=== PATIENT | female | born 1995 | race Caucasian/White ===

== ENCOUNTER 2021-11-28 16:27 | Emergency (ER) | payer OTHER, SELFPAY ==
[2021-11-28 16:45] VITALS: BP 120/73; PULSE 86; RESP 18; TEMP 36.7; O2SAT 100; BMI 21.2
[2021-11-28 17:27] LABS: COVID19 -Nasal RAPID POSITIVE (Negative)
--- NOTE | 2021-11-28 19:46 | ED.RECABL ---
HPI - Recheck/Abnormal Lab/Rx General Chief Complaint: Recheck/Abnormal Lab/Rx Stated Complaint: not feeling well, bedridden for days Time Seen by Provider: 11/28/21 19:46 Source: patient Mode of arrival: Ambulatory History of Present Illness HPI narrative: 26-year-old female nonsmoker with noncontributory medical history presents with a chief complaint of various upper respiratory symptoms including body aches, runny nose, nasal congestion and sore throat as well as dry and hacking cough. She is had poor appetite and little energy for the past few days. She is nauseated but denies any vomiting. She denies any diarrhea or constipation. She is had no dysuria, frequency or urgency. She states that she was vaccinated against COVID and took a home test that was negative. Related Data Home Medications Medication Instructions Recorded Confirmed No Known Home Medications 11/28/21 11/28/21 Allergies Allergy/AdvReac Type Severity Reaction Status Date / Time Penicillins Allergy Unknown Verified 11/28/21 16:50 Review of Systems Review of Systems Narrative: GENERAL: See HPI HEENT: See HPI RESPIRATORY: See HPI CARDIOVASCULAR: Denies chest pain, palpitations, orthopnea, edema, GASTROINTESTINAL: See HPI : Denies dysuria, frequency, incontinence, hematuria, urinary retention. MUSCULOSKELETAL: denies weakness, joint pain, or bony pain SKIN: Denies rash, skin lesions, or other NEUROLOGIC: Denies weakness, headache, numbness, change in speech, confusion, seizures, incoordination. PSYCHIATRIC: No concerning psychosocial issues. 12 point review of systems is negative except for those stated above Patient History Social History Smoking Status: Never smoker Smoking Status: Never smoker alcohol intake frequency: 0-2 drinks per day Substance Use Type: does not use Exam Narrative Exam Narrative: GENERAL: [26] year old patient appears stated age. Well-developed patient, in mild distress. HEAD: Atraumatic. Normocephalic. EYES: Pupils equal round and reactive. Extraocular motions intact. No scleral icterus. No injection or drainage. ENT: Nose without bleeding, purulent drainage. Throat without erythema, tonsillar hypertrophy or exudate. Airway patent. NECK: Trachea midline. Non tender CARDIOVASCULAR: Regular rate and rhythm without murmurs, gallops, or rubs. RESPIRATORY: Clear to auscultation. Breath sounds equal bilaterally. No wheezes, rales, or rhonchi. GASTROINTESTINAL: Abdomen soft, non-tender, nondistended. EXTREMITIES: No edema or joint tenderness. BACK: Nontender without deformity or crepitance. No flank tenderness. NEURO: AOx3. SKIN: No rash or erythema of visible areas Initial Vital Signs Initial Vital Signs: Vital Signs Temperature 98.1 F 11/28/21 16:45 Pulse Rate 86 11/28/21 16:45 Respiratory Rate 18 11/28/21 16:45 Blood Pressure 120/73 11/28/21 16:45 Pulse Oximetry 100 11/28/21 16:45 Oxygen Delivery Method 11/28/21 16:45 Course Orders Ordered: ED Orders 11/28/21 19:51 Test Urine Stat Vital Signs Vital signs: Vital Signs - 8 hr 11/28/21 20:42 Pulse Rate 75 Respiratory Rate 18 Blood Pressure 125/72 Pulse Oximetry 98 Oxygen Delivery Method Room Air MDM - Recheck/Abnormal Lab/Rx Lab Data Labs: Lab Results 11/28/21 11/28/21 Range/Units 16:57 19:51 Urine Test Negative (Negative) SARS-CoV-2 (PCR) Positive H (Negative) Urine Dip Bedside Urine Glucose Negative Bedside Urine Bilirubin - Negative Bedside Urine Ketone - Negative Urine Specific [place] 1.010 Bedside Urine Occult Blood - Negative Bedside Urine pH 6.0 Bedside Urine Protein - Negative Bedside Urine Urobilinogen - Negative Bedside Urine Nitrite - Negative Bedside Urine Leukocytes - Negative Esterase Discharge Plan Departure Patient Disposition: Home Clinical Impression: COVID-19 Instructions: DI for COVID-19 (Suspected or Confirmed ) Activity Restrictions/Additional Instructions: *You have been diagnosed with [ COVID-19] *What to do: ?* per recommendations from the CDC and the [facility] Department of Health ?* stay home except to get medical care. ?Restrict activities outside your home, except for getting medical care. ?Do not go to work, school, or public areas. ?Avoid using public transportation, ride sharing, or taxis. ?* separate yourself from other people in your home. ?* call ahead before visiting your doctor ?* Wear a facemask ?* Cover your coughs and sneezes ?* Clean your hands often ?* Avoid sharing household items ?* Clean all high-touch services every day ?* Monitor your symptoms and seek prompt medical attention if your illness is worsening, particularly with difficulty in breathing. You may discontinue your isolation when: ?1. You have been fever-free for at least 24 hours without the use of fever reducing medication, AND ?2. Your symptoms are getting better, AND ?3. At least 5 days have passed since symptoms first appeared ?4. If you have fever, continue to stay home until fever resolves Individuals with laboratory confirmed COVID-19 who have not had any symptoms may discontinue home isolation when at least 5 days have passed since the date of their first COVID-19 diagnostic test and have had no subsequent illness You should notifiy any friends and family that have been in close contact *If up to date on COVID Vaccines, then they do not need to quarantine unless symptoms develop. Get tested on day 5 (or sooner if symptoms develop). Take precautions and watch for symptoms until day 10 *If NOT up to date on COVID Vaccines, then CDC recommends quarantine for at least 5 full days. Wear a well fitted mask at home if you must be around others. If they ?develop symptoms they should get tested. If they remain asymptomatic they should get tested on day 5. They should take precautions and monitor for symptoms until day 10. Prescriptions: No Action No Known Home Medications Stand Alone Forms: Work Release Note Visit Report Forms: Patient Portal/API
[2021-11-28 20:22] LABS: Pregnancy Test Urine Negative (Negative)
[2021-11-28 20:42] VITALS: BP 125/72; PULSE 75; RESP 18; O2SAT 98
== END 2021-11-28 20:42 | disposition home or self-care (01) ==
PROVIDERS: Emergency Medicine; Emergency Provider Emergency Medicine
DX: U07.1 COVID-19 (principal)
CPT/HCPCS: 81003; 81025; 87635; 99282; C9803

== ENCOUNTER 2022-11-26 15:38 | Emergency (ER) | payer OTHER, SELFPAY ==
[2022-11-26 15:53] VITALS: BP 118/64; PULSE 79; RESP 16; TEMP 36.9; O2SAT 100; BMI 21.2
--- NOTE | 2022-11-26 15:57 | DI.RAD.S_ITS ---
PROCEDURE: XR FINGER LT MIN 2V INDICATIONS: injury TECHNIQUE: AP hand, 2 views of the 1st finger(s) acquired. COMPARISON: None. FINDINGS: Bones: No fractures or dislocations. No suspicious bony lesions. Soft tissues: No suspicious soft tissue calcifications. IMPRESSION: Unremarkable left thumb radiographs Approved by: Alfonso Kulkarni M.D. on 11/26/2022 at 15:33
--- NOTE | 2022-11-26 18:35 | ED.UPPEXIN ---
HPI - Extremity Injury (Upper) <La Lane PA-C - Last Filed: 11/26/22 18:37> General Chief Complaint: Extremity Injury, Upper Stated Complaint: Thumb inj Time Seen by Provider: 11/26/22 17:29 Source: patient Mode of arrival: Ambulatory History of Present Illness HPI narrative: 27-year-old female with no reported past medical history presents to the ED status post a left thumb injury sustained just prior to arrival. Patient states that she was trying to type a boat when her finger got stuck between the rope and the dock. Patient denies numbness, tingling, weakness. Patient endorses pain in the thumb. Patient has full range of motion. Related Data Home Medications Medication Instructions Recorded Confirmed No Known Home Medications 11/28/21 11/28/21 Allergies Allergy/AdvReac Type Severity Reaction Status Date / Time Penicillins Allergy Unknown Verified 11/28/21 16:50 Review of Systems <La Lane PA-C - Last Filed: 11/26/22 18:37> Review of Systems ROS Unobtainable: All systems reviewed & are unremarkable except as noted in HPI and below Constitutional Constitutional: Denies chills, Denies fatigue, Denies fever(s), Denies frequent falls, Denies lethargy and Denies weakness Eyes Eyes: Denies change in vision, Denies eye discharge, Denies irritation and Denies loss of vision ENT Ears, Nose, Mouth, and Throat: Denies change in voice, Denies dizziness, Denies neck pain, Denies sore throat and Denies throat swelling Cardiovascular Cardiovascular: Denies chest pain, Denies irregular heart rhythm, Denies lightheadedness, Denies palpitations, Denies dyspnea, Denies dyspnea on exertion and Denies orthopnea Respiratory Respiratory: Denies cough, Denies dyspnea, Denies dyspnea on exertion and Denies wheezing Gastrointestinal Gastrointestinal: Denies abdominal pain, Denies change in bowel habits, Denies diarrhea, Denies nausea and Denies vomiting Genitourinary Genitourinary: Denies hematuria, Denies flank pain, Denies urinary incontinence and Denies urinary urgency Musculoskeletal Musculoskeletal: Denies back pain, Denies muscle weakness, Denies neck pain, Denies numbness and Denies tingling Comments: Left thumb pain Integumentary/Breasts Skin/Breast: Denies pruritus, Denies erythema, Denies rash and Denies wounds Neurologic Neurologic: Denies behavioral changes, Denies confusion, Denies dizziness, Denies frequent falls, Denies loss of vision, Denies numbness, Denies tingling and Denies weakness Psychiatric Psychiatric: Denies anxiety, Denies behavioral changes, Denies confusion, Denies depression, Denies homicidal ideation and Denies suicidal ideation Endocrine Endocrine: Denies fatigue, Denies flushing and Denies palpitations Hematologic/Lymphatic Hematologic/Lymphatic: Denies easy bruising Allergic/Immunologic Allergic/Immunologic: Denies urticaria, Denies throat swelling and Denies wheezing Patient History <La Lane PA-C - Last Filed: 11/26/22 18:37> Social History Smoking Status: Never smoker Smoking Status: Never smoker alcohol intake frequency: 0-2 drinks per day Substance Use Type: does not use Exam <La Lane PA-C - Last Filed: 11/26/22 18:37> Narrative Exam Narrative: Const General:?cooperative, healthy appearing and comfortable [facility] Head:?normal to inspection Ears:?hearing grossly normal bilaterally Nose:?external nose normal Face and sinus:?normal facial exam and sinuses nontender Mouth:?oral mucosae normal Throat:?posterior oropharynx normal Eyes General:?appearance normal, both eyes and all related structures Neck Neck:?normal visual inspection and no lymphadenopathy noted Resp Effort & Inspection:?normal respiratory effort Auscultation:?clear to auscultation bilaterally Cardio Rate:?regular rate Rhythm:?regular rhythm Musculoskeletal Left thumb tender to palpation. There is full range of motion, however range of motion is limited by pain. No scaphoid tenderness. Strength and sensation are intact. Patient is neurovascularly intact. Neuro General:?patient alert, patient awake and patient oriented x3 Initial Vital Signs Initial Vital Signs: Vital Signs Temperature 98.5 F 11/26/22 15:53 Pulse Rate 79 11/26/22 15:53 Respiratory Rate 16 11/26/22 15:53 Blood Pressure 118/64 11/26/22 15:53 Pulse Oximetry 100 11/26/22 15:53 Oxygen Delivery Method Room Air 11/26/22 15:53 <Henrietta Lovett DO - Last Filed: 11/28/22 22:22> Initial Vital Signs Initial Vital Signs: Vital Signs Temperature 98.5 F 11/26/22 15:53 Pulse Rate 79 11/26/22 15:53 Respiratory Rate 16 11/26/22 15:53 Blood Pressure 118/64 11/26/22 15:53 Pulse Oximetry 100 11/26/22 15:53 Oxygen Delivery Method Room Air 11/26/22 15:[address] <La Lane PA-C - Last Filed: 11/26/22 18:37> Orders Ordered: ED Orders 11/26/22 15:57 XR finger LT min 2V Stat Vital Signs Vital signs: Vital Signs - 8 hr 11/26/22 15:53 Temperature 98.5 F Pulse Rate 79 Respiratory Rate 16 Blood Pressure 118/64 Pulse Oximetry 100 Oxygen Delivery Method Room Air <Henrietta Lovett DO - Last Filed: 11/28/22 22:22> Orders Ordered: ED Orders 11/26/22 15:57 XR finger LT min 2V Stat Vital Signs Vital signs: Vital Signs - 8 hr 11/26/22 15:53 Temperature 98.5 F Pulse Rate 79 Respiratory Rate 16 Blood Pressure 118/64 Pulse Oximetry 100 Oxygen Delivery Method Room Air MDM - Extremity Injury (Upper) <La Lane PA-C - Last Filed: 11/26/22 18:37> MDM Narrative Medical decision making narrative: 27-year-old female with no reported past medical history presents to the ED status post a left thumb injury sustained just prior to arrival. Concern for fracture/dislocation versus musculoskeletal sprain/strain. Obtained x-rays which did not show any acute findings. Patient's symptoms are likely due to musculoskeletal sprain/strain. Advise supportive care with Tylenol, ibuprofen, heat packs, ice packs. Recommend follow-up with PCP. ED return precautions discussed with patient. Patient verbalized understanding. Medical records reviewed: Yes Discharge Plan Departure Patient Disposition: Home Clinical Impression: Left thumb sprain Instructions: DI for Finger Sprain Activity Restrictions/Additional Instructions: You were evaluated in the ED today for a left thumb injury. The x-ray did not show any fracture or dislocation. Your symptoms are likely due to a musculoskeletal sprain/strain. You may take Tylenol, I ibuprofen for the pain. You may apply ice packs for the 1st 24 hours, following which apply heat packs. Please follow-up with your PCP as soon as possible. Please return to the ED if you have worsening symptoms, numbness, tingling, weakness. Prescriptions: No Action No Known Home Medications Stand Alone Forms: Patient Portal/API <Henrietta Lovett DO - Last Filed: 11/28/22 22:22> Cosign ED Attending Cosrichardature Attestation: I was immediately available in the department for consultation. Documentation has been reviewed.
== END 2022-11-26 18:37 | disposition home or self-care (01) ==
PROVIDERS: Emergency Provider Student in an Organized Health Care Education/Training Program
DX: S63.602A Unspecified sprain of left thumb, initial encounter (principal); X58.XXXA Exposure to other specified factors, initial encounter
CPT/HCPCS: 73140; 99283

== ENCOUNTER 2022-12-28 20:49 | Emergency (ER) | payer OTHER, SELFPAY ==
[2022-12-28 20:53] VITALS: BP 120/62; PULSE 80; RESP 16; TEMP 36.8; O2SAT 100; BMI 20.7
--- NOTE | 2022-12-28 21:01 | DI.US.S_ITS ---
PROCEDURE: US PELVIC COMPLETE INDICATIONS: INCREASED RIGHT ADNEXAL PAIN TECHNIQUE: Real-time scanning was performed of the pelvic organs, with image documentation. Additional endovaginal scanning was necessary due to incomplete visualization of the adnexal and endometrial structures by transabdominal scanning. COMPARISON: None. FINDINGS: Uterus: Uterus is anteverted and normal in size at 3.1 x 4.5 x 7.1 cm. The myometrium is homogeneous. The endometrium measures 7.3 mm combined thickness. Ovaries: The right ovary measures 3.9 x 1.9 x 4.1 cm, with a calculated ovarian volume of 15.8 cc. The left ovary measures 2.9 x 1.8 x 3.8 cm, with a calculated ovarian volume of 10.0 cc. The ovaries have a normal sonographic appearance. Less than 12 follicles can be seen in each ovary. No adnexal masses are seen. There is no evidence of ovarian torsion Other: No pathologic free abdominal or pelvic fluid. A normal or abnormal appendix was not seen. IMPRESSION: No adnexal or uterine abnormality found, no sign of ovarian torsion. A normal or abnormal appendix could not be located. Dictated by: Eric Fall M.D. on 12/28/2022 at 22:10 Approved by: Eric Fall M.D. on 12/28/2022 at 22:12
--- NOTE | 2022-12-28 21:27 | ED.GENADULT ---
HPI - General Adult General Chief complaint: Abdominal Pain Stated complaint: R ovarian pain Time Seen by Provider: 12/28/22 20:50 Source: patient Mode of arrival: Ambulatory History of Present Illness HPI narrative: Patient is a 27-year-old female. Not on control. Never been . Here for evaluation of right-sided adnexal pain. She also states that it knight when she urinates. She was seen at an outside facility somewhere between 7 and 14 days ago for this same pain. Had an ultrasound. Was told that she had a right-sided ovarian cyst. She does not know the size of the cyst. Since that time she states that her symptoms had doubled somewhat however today at around noon her symptoms acutely got worse. She was just outside sitting when this happened. Has been persistent since then. She is having some vaginal discharge. Does have the dysuria. No change in bowel habits. Some nausea but no vomiting. No fevers. Related Data Home Medications Medication Instructions Recorded Confirmed No Known Home Medications 11/28/21 11/28/21 Allergies Allergy/AdvReac Type Severity Reaction Status Date / Time Penicillins Allergy Unknown Verified 12/28/22 20:53 Review of Systems Constitutional Constitutional: Reports system reviewed and no additional complaints, except as documented Gastrointestinal Gastrointestinal: Reports system reviewed and no additional complaints, except as documented Genitourinary Genitourinary: Reports system reviewed and no additional complaints, except as documented Musculoskeletal Musculoskeletal: Reports system reviewed and no additional complaints, except as documented Integumentary/Breasts Skin/Breast: Reports system reviewed and no additional complaints, except as documented Patient History Social History Smoking Status: Never smoker Smoking Status: Never smoker alcohol intake frequency: 0-2 drinks per day Substance Use Type: does not use Exam Initial Vital Signs Initial Vital Signs: Vital Signs Temperature 98.2 F 12/28/22 20:53 Pulse Rate 80 12/28/22 20:53 Respiratory Rate 16 12/28/22 20:53 Blood Pressure 120/62 12/28/22 20:53 Pulse Oximetry 100 12/28/22 20:53 Oxygen Delivery Method Room Air 12/28/22 20:53 Const General: cooperative, comfortable and No ill appearing HENMT Head: normal to inspection and normocephalic Resp Effort & Inspection: normal respiratory effort Cardio Rate: regular rate GI Inspection: normal to inspection and non-distended Palpation: soft, No firm, No guarding and tender (Right adnexa) Back/Spine/Pelvis Back: No CVA tenderness Neuro General: patient alert, patient awake and moves all extremities Extrem General: normal to inspection and capillary refill normal Course Orders Ordered: ED Orders 12/28/22 21:01 US pelvic complete Stat Vital Signs Vital signs: Vital Signs - 8 hr 12/28/22 20:53 Temperature 98.2 F Pulse Rate 80 Respiratory Rate 16 Blood Pressure 120/62 Pulse Oximetry 100 Oxygen Delivery Method Room Air Medical Decision Making Lab Data Lab results reviewed: Yes I reviewed the patient's lab results. Labs: Point of Care Testing Test Results Negative Urine Dip Bedside Urine Glucose Negative Bedside Urine Bilirubin - Negative Bedside Urine Ketone - Negative Urine Specific [place] 1.03 Bedside Urine Occult Blood - Negative Bedside Urine pH 6.0 Bedside Urine Protein - Negative Bedside Urine Urobilinogen - Negative Bedside Urine Nitrite - Negative Bedside Urine Leukocytes - Negative Esterase Point of care testing: Point of Care Testing Test Results Negative Urine Dip Bedside Urine Glucose Negative Bedside Urine Bilirubin - Negative Bedside Urine Ketone - Negative Urine Specific [place] 1.03 Bedside Urine Occult Blood - Negative Bedside Urine pH 6.0 Bedside Urine Protein - Negative Bedside Urine Urobilinogen - Negative Bedside Urine Nitrite - Negative Bedside Urine Leukocytes - Negative Esterase Imaging Data US - [employer]ER: Radiologist's Impression: PROCEDURE:? US PELVIC COMPLETE ? INDICATIONS:? INCREASED RIGHT ADNEXAL PAIN ? TECHNIQUE:? Real-time scanning was performed of the pelvic organs, with image documentation.? Additional endovaginal scanning was necessary due to incomplete visualization of the adnexal and endometrial structures by transabdominal scanning.? ? COMPARISON:? None. ? FINDINGS:? ?? Uterus:? Uterus is anteverted and normal in size at 3.1 x 4.5 x 7.1 cm. The myometrium is homogeneous. ? The endometrium measures 7.3 mm combined thickness. ? Ovaries:? The right ovary measures 3.9 x 1.9 x 4.1 cm, with a calculated ovarian volume of 15.8 cc. The left ovary measures 2.9 x 1.8 x 3.8 cm, with a calculated ovarian volume of 10.0 cc. The ovaries have a normal sonographic appearance. Less than 12 follicles can be seen in each ovary.? No adnexal masses are seen.? There is no evidence of ovarian torsion ? Other:? No pathologic free abdominal or pelvic fluid.? A normal or abnormal appendix was not seen. ? ? IMPRESSION:? No adnexal or uterine abnormality found, no sign of ovarian torsion.? A normal or abnormal appendix could not be located.? MDM Narrative Medical decision making narrative: test negative. Urinalysis negative. Ultrasound today does not show any right-sided ovarian cyst or torsion. I was unable to obtain the records from her ultrasound a couple weeks ago however since there is no cyst today I suspect that she is ruptured the cyst. Also considered appendicitis but I feel this is less likely given the location of her discomfort and how she presents. test was negative. Will discharge patient home with return precautions. She expressed understanding and agreement. Discharge Plan Departure Patient Disposition: Home Clinical Impression: Pelvic pain Instructions: DI for Pelvic Pain Activity Restrictions/Additional Instructions: You can take Tylenol/ibuprofen for any discomfort. I recommend you contact your primary doctor for follow-up to discuss the indications for a referral to see supervisor grading. Return to the emergency department for new symptoms. Prescriptions: No Action No Known Home Medications Stand Alone Forms: Patient Portal/API
[2022-12-28 22:47] VITALS: BP 116/64; PULSE 70; RESP 16; TEMP 36.3; O2SAT 99
== END 2022-12-28 22:48 | disposition home or self-care (01) ==
PROVIDERS: Emergency Provider Emergency Medicine
DX: R10.2 Pelvic and perineal pain (principal)
CPT/HCPCS: 76830; 76856; 81003; 81025; 93975; 99282

== ENCOUNTER 2023-01-23 13:15 | Emergency (ER) | payer OTHER, SELFPAY ==
[2023-01-23] VITALS (27 sets, daily range): BP systolic 108–135; BP diastolic 61–85; PULSE 54–83; RESP 10–36; TEMP 36.6; O2SAT 98–100; BMI 20.3
--- NOTE | 2023-01-23 13:34 | DI.RAD.S_ITS ---
PROCEDURE: XR ELBOW RT MIN 3V INDICATIONS: thinks dislocated again TECHNIQUE: 3 views of the elbow were acquired. COMPARISON: None. FINDINGS: Bones: There is posterior medial subluxation/dislocation of the proximal ulnar at the humeral ulnar joint. There is a fracture fragment , most likely arising from the coronoid process of the proximal ulna. Soft tissues: No elbow joint effusion. No suspicious soft tissue calcifications. IMPRESSION: 1. Fracture dislocation of elbow. Dictated by: Nikkie Pinzon M.D. on 01/23/2023 at 14:34 Approved by: Nikkie Pinzon M.D. on 01/23/2023 at 14:38
--- NOTE | 2023-01-23 13:58 | PC.NURSE ---
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 last time this happened, they wanted to do elbow surgery but opted not to because of the ehler's-danlos.
--- NOTE | 2023-01-23 15:00 | ED.GENADULT ---
HPI - General Adult General Chief complaint: Extremity Injury, Upper Stated complaint: dislocated elbow Time Seen by Provider: 01/23/23 14:19 Source: patient Mode of arrival: Ambulatory Limitations: no limitations History of Present Illness HPI narrative: Patient is a 27-year-old female here for evaluation of what she states is a dislocated right elbow. She states she has dislocated her right elbow in the past. Today she was at the gym. She was doing an exercise when she states that she felt like her elbow dislocated and she slipped forward landing on her right side. No other injuries from the event. Has difficulty with moving her elbow. Denies any right wrist or right shoulder discomfort. Related Data Home Medications Medication Instructions Recorded Confirmed No Known Home Medications 11/28/21 11/28/21 Allergies Allergy/AdvReac Type Severity Reaction Status Date / Time Penicillins Allergy Unknown Verified 12/28/22 20:53 Review of Systems Constitutional Constitutional: Reports system reviewed and no additional complaints, except as documented Musculoskeletal Musculoskeletal: Reports system reviewed and no additional complaints, except as documented Integumentary/Breasts Skin/Breast: Reports system reviewed and no additional complaints, except as documented Neurologic Neurologic: Reports system reviewed and no additional complaints, except as documented Patient History Social History Smoking Status: Never smoker Smoking Status: Never smoker alcohol intake frequency: 0-2 drinks per day Substance Use Type: does not use Exam Initial Vital Signs Initial Vital Signs: Vital Signs Temperature 97.8 F 01/23/23 13:30 Pulse Rate 72 01/23/23 13:30 Respiratory Rate 18 01/23/23 13:30 Blood Pressure 122/81 01/23/23 13:30 Pulse Oximetry 100 01/23/23 13:30 Oxygen Delivery Method Room Air 01/23/23 13:30 HENMT Head: normal to inspection and normocephalic Cardio Pulses: radial pulses present on the left Skin General: no rashes or lesions noted Neuro Sensory Exam: no sensory deficits noted Extrem Other: Right shoulder and right wrist are unremarkable. Patient has discomfort with palpation and movement of the right elbow. Procedures Orthopedic Joint Reduction Joint #1: Time Out Performed: Yes Side: right Joint Reduction Location: elbow Analgesia: procedural sedation Technique used: traction/counter-traction Post-reduction neuro exam: no change Post-reduction vascular: no change Post Reduction X-Ray Obtained: Yes Post Reduction X-Ray Results: reduced Splint Applied: Yes Patient Tolerated Procedure: Well Orthopedic Splinting/Casting Injury #1: Side: right Upper Extremity Injury Location: elbow Upper Extremity Immobilizer: posterior splint Other Orthopedic Equipment: other (Sling) Post splinting neuro exam: no change Post splinting vascular exam: no change Placed by: Provider Procedural Sedation Consent signed: Yes Time out performed: Yes Indication: fracture/dislocation reduction ASA Class: I Mallampati Airway Classification: Class I Preparation: hospital monitor applied, pulse oximeter, capnometry used, supplemental O2 applied, suction/airway equipment at bedside and IV secured IV Propofol dose (mg): 100 Intraservice time/total sedation time (min): 15 ED Sedation Level: Moderate (Concious) Patient Tolerated Procedure: Well Complications: none Course Orders Ordered: ED Orders 01/23/23 13:34 XR elbow RT min 3V Stat 01/23/23 15:41 XR elbow RT 2V Stat 01/23/23 17:06 XR elbow RT 2V Stat Discontinued Medications Hydromorphone HCl (Hydromorphone 1 Mg Inj) 1 mg IM NOW ONE Stop: 01/23/23 15:01 Last Admin: 01/23/23 15:07 Dose: 1 mg Documented By: SPIKE Propofol (Propofol 200 Mg/20 Ml Vial) 100 mg IV NOW ONE Stop: 01/23/23 15:50 Last Admin: 01/23/23 16:30 Dose: 100 mg Documented By: SPIKE Vital Signs Vital signs: Vital Signs - 8 hr 01/23/23 13:30 01/23/23 13:53 01/23/23 16:00 Temperature 97.8 F Pulse Rate 72 Pulse Rate [Right Radial] 72 Respiratory Rate 18 Blood Pressure 122/81 124/75 Pulse Oximetry 100 Oxygen Delivery Method Room Air 01/23/23 16:00 01/23/23 16:01 01/23/23 16:01 Temperature Pulse Rate 70 71 Pulse Rate [Right Radial] Respiratory Rate Blood Pressure 129/71 Pulse Oximetry 100 100 Oxygen Delivery Method 01/23/23 16:02 01/23/23 16:50 01/23/23 16:02 Temperature Pulse Rate 79 72 Pulse Rate [Right Radial] Respiratory Rate 16 12 Blood Pressure 135/73 Pulse Oximetry 100 Oxygen Delivery Method 01/23/23 16:05 01/23/23 16:05 01/23/23 16:10 Temperature Pulse Rate 67 Pulse Rate [Right Radial] Respiratory Rate 10 L Blood Pressure 132/75 123/67 Pulse Oximetry 100 Oxygen Delivery Method 01/23/23 16:10 01/23/23 16:15 01/23/23 16:15 Temperature Pulse Rate 66 64 Pulse Rate [Right Radial] Respiratory Rate 13 24 Blood Pressure 126/71 Pulse Oximetry 100 100 Oxygen Delivery Method 01/23/23 16:20 01/23/23 16:20 01/23/23 16:25 Temperature Pulse Rate 62 Pulse Rate [Right Radial] Respiratory Rate 21 Blood Pressure 120/73 118/71 Pulse Oximetry 100 Oxygen Delivery Method 01/23/23 16:25 01/23/23 16:30 01/23/23 16:30 Temperature Pulse Rate 63 80 Pulse Rate [Right Radial] Respiratory Rate 15 24 Blood Pressure 121/71 Pulse Oximetry 99 99 Oxygen Delivery Method 01/23/23 16:35 01/23/23 16:40 01/23/23 16:45 Temperature Pulse Rate 83 75 72 Pulse Rate [Right Radial] Respiratory Rate 17 18 25 H Blood Pressure 108/61 115/62 Pulse Oximetry 100 99 100 Oxygen Delivery Method 01/23/23 16:48 01/23/23 16:48 01/23/23 16:50 Temperature Pulse Rate 65 Pulse Rate [Right Radial] Respiratory Rate Blood Pressure 128/85 119/67 Pulse Oximetry 100 Oxygen Delivery Method 01/23/23 16:50 01/23/23 16:55 01/23/23 16:55 Temperature Pulse Rate 57 L 56 L Pulse Rate [Right Radial] Respiratory Rate 30 H 36 H Blood Pressure 109/71 Pulse Oximetry 100 100 Oxygen Delivery Method Medical Decision Making Imaging Data Extremity x-ray #1: Radiologist's Impression: PROCEDURE:? XR ELBOW RT MIN 3V ? INDICATIONS:? thinks dislocated again ? TECHNIQUE:? 3 views of the elbow were acquired.? ? COMPARISON:? None. ? FINDINGS:? ? Bones:? There is posterior medial subluxation/dislocation of the proximal ulnar at the humeral ulnar joint.? There is a fracture fragment , most likely arising from the coronoid process of the proximal ulna.? ? Soft tissues:? No elbow joint effusion.? No suspicious soft tissue calcifications.? ? ? IMPRESSION:? ? 1. Fracture dislocation of elbow.? Extremity x-ray #2: Radiologist's Impression: PROCEDURE:? XR ELBOW RT 2V ? INDICATIONS:? post reduction ? TECHNIQUE:? 2 views of the elbow were acquired.? ? COMPARISON:? [facility], CR, XR ELBOW RT MIN 3V, 01/23/2023, 13:44.? [facility], CR, XR ELBOW RT 2V, 01/23/2023, 15:45. ? FINDINGS: Overlying casting material obscures fine bony detail.? Reduction of prior elbow dislocation.? Possible acute mildly displaced ulna coronoid process fracture.? Elbow joint effusion is present. ? ? IMPRESSION:? Reduction of prior elbow dislocation.? Possible acute mildly displaced ulna coronoid process fracture.? Follow-up radiographs and/or cross-sectional imaging could be obtained as clinically indicated. MDM Narrative Medical decision making narrative: Initially attempted to reduce the subluxation with just I am pain medication but this was unsuccessful. Patient then needed a procedural sedation were were able to reduce it. She was placed in a posterior splint. Plan will be to discharge patient home with instructions to follow up with Orthopedic surgery. She was given return precautions. She expressed understanding and agreement. Discharge Plan Departure Patient Disposition: Home Clinical Impression: Dislocated elbow, Elbow fracture, right Instructions: DI for Elbow Fracture, How to Take Care of Your Splint Activity Restrictions/Additional Instructions: The splint that was placed today does need to be treated like a cast. You need to keep it in place. You need to keep it dry. Tomorrow contact the orthopedic doctors of the number provided below for follow-up. Return to the emergency department for new symptoms. Prescriptions: No Action No Known Home Medications Referrals: Gabbi Burns MD [Physician] - Provider,Latoya COLLIER [Primary Care Provider] - Stand Alone Forms: Patient Portal/API
[2023-01-23] MEDS: HYDROMORPHONE 1 MG INJ IM (15:07)
--- NOTE | 2023-01-23 15:41 | DI.RAD.S_ITS ---
PROCEDURE: XR ELBOW RT 2V INDICATIONS: post reduction TECHNIQUE: 1 views of the elbow were acquired. COMPARISON: [facility], CR, XR ELBOW RT MIN 3V, 01/23/2023, 13:44. FINDINGS: Post reduction of the elbow. Alignment appears anatomic on the single view. An elbow joint effusion is present. Possible acute fracture ulna coronoid process IMPRESSION: Post reduction of the elbow. Alignment appears anatomic on the single view. An elbow joint effusion is present. Possible acute fracture ulna coronoid process Dictated by: Calixto Church M.D. on 01/23/2023 at 17:13 Approved by: Calixto Church M.D. on 01/23/2023 at 17:15
[2023-01-23] MEDS: propofoL 200 MG/20 ML VIAL 100 MG IV (16:30)
--- NOTE | 2023-01-23 17:06 | DI.RAD.S_ITS ---
PROCEDURE: XR ELBOW RT 2V INDICATIONS: post reduction TECHNIQUE: 2 views of the elbow were acquired. COMPARISON: [facility], CR, XR ELBOW RT MIN 3V, 01/23/2023, 13:44. [facility], CR, XR ELBOW RT 2V, 01/23/2023, 15:45. FINDINGS: Overlying casting material obscures fine bony detail. Reduction of prior elbow dislocation. Possible acute mildly displaced ulna coronoid process fracture. Elbow joint effusion is present. IMPRESSION: Reduction of prior elbow dislocation. Possible acute mildly displaced ulna coronoid process fracture. Follow-up radiographs and/or cross-sectional imaging could be obtained as clinically indicated. Dictated by: Calixto Church M.D. on 01/23/2023 at 17:16 Approved by: Calixto Church M.D. on 01/23/2023 at 17:21
== END 2023-01-23 17:50 | disposition home or self-care (01) ==
PROVIDERS: Emergency Provider Emergency Medicine
DX: S52.041A Displaced fracture of coronoid process of right ulna, initial encounter for closed fracture (principal); W18.30XA Fall on same level, unspecified, initial encounter
CPT/HCPCS: 24675; 29125; 73070; 73080; 96372; 99152; 99284; 99285; 99291; J1170; J2704